=== PATIENT | male | born 1965 | race Caucasian/White ===

== ENCOUNTER 2016-09-27 17:55 | Emergency (ER) | payer MEDICARE, MEDICAID ==
[2016-09-27 19:36] VITALS: BP 143/89
[2016-09-27] MEDS ORDERED: Amoxicillin/Clavulanate TAB* 875 MG PO ONE (20:44)
--- NOTE | 2016-09-27 21:09 | UC ---
Ear Complaint HPI - HPI Summary HPI Summary: left jaw and ear throbbing ; had left lower molar filling 09/13/16 since 09/20 had right ear pain, now is worsening and mostly in right ear. - History of Current Complaint Chief Complaint: UCEar Stated Complaint: JAW PAIN, AND EAR ACHE Time Seen by Provider: 09/27/16 20:10 Hx Obtained From: Patient Onset/Duration: Sudden Onset, Lasting Weeks, Still Present, Worse Since - LAST TWO DAYS Severity Initially: Mild Severity Currently: Moderate Associated Signs/Symptoms: Positive: URI Symptoms - Allergies/Home Medications Allergies/Adverse Reactions: Allergies Allergy/AdvReac Type Severity Reaction Status Date / Time Ciprofloxacin [From Cipro] Allergy Intermediate Itching Verified 09/27/16 19:36 Morphine Allergy Intermediate Itching Verified 09/27/16 19:36 PMH/Surg Hx/FS Hx/Imm Hx Previously Healthy: Yes Endocrine History Of: Denies: Diabetes, Thyroid Disease Cardiovascular History Of: Reports: Hypertension - rx Denies: Cardiac Disorders Respiratory History Of: Denies: COPD, Asthma GI/ History Of: Denies: Ulcer - Surgical History Surgical History: Yes Surgery Procedure, Year, and Place: HYSTERECTOMY. KIDNEY STENT. BREAST REDUCTION. ACHILLES TENDER. HERNIA - Family History Known Family History: Negative: Respiratory Disease - Social History Occupation: Employed Part-time Lives: With Family Alcohol Use: None Substance Use Type: None, Prescribed Smoking Status (MU): Never Smoked Tobacco Have You Smoked in the Last Year: No - Immunization History Most Recent Influenza Vaccination: fall 2015 Review of Systems Constitutional: Negative Skin: Negative Eyes: Negative ENT: Ear Ache Respiratory: Negative Cardiovascular: Negative Gastrointestinal: Negative Genitourinary: Negative Motor: Negative Neurovascular: Negative Musculoskeletal: Negative Neurological: Negative Psychological: Negative All Other Systems Reviewed And Are Negative: Yes Physical Exam Triage Information Reviewed: Yes Appearance: Well-Appearing, No Pain Distress, Well-Nourished Vital Signs: Initial Vital Signs Temp 98.8 F 09/27/16 19:26 Pulse 96 09/27/16 19:26 Resp 18 09/27/16 19:26 BP 143/89 09/27/16 19:26 Pulse Ox 99 09/27/16 19:26 Vital Signs Reviewed: Yes ENT: Positive: Pharynx normal, Nasal congestion, TM bulging, TM dull, Other: - BILATERAL CERUMEN IMPACTION; LEFT EAR EAC EDEMA ERRETHEMA Dental Exam: Normal Neck exam: Normal Neck: Positive: Supple, Nontender, No Lymphadenopathy Respiratory Exam: Normal Respiratory: Positive: Chest non-tender, Lungs clear, Normal breath sounds, No respiratory distress, No accessory muscle use Cardiovascular Exam: Normal Cardiovascular: Positive: RRR, No Murmur Abdominal Exam: Normal Abdomen Description: Positive: Nontender, No Organomegaly Musculoskeletal Exam: Normal Musculoskeletal: Positive: Strength Intact Neurological Exam: Normal Psychological Exam: Normal Skin Exam: Normal Ear Complaint Course/Dx - Differential Dx/Diagnosis Differential Diagnosis/HQI/PQRI: Otitis Externa, Otitis Media, URI Provider Diagnoses: LEFT OTITIS EXTERNA. RIGHT OTITIS SEROUS. SINUSITIS. BILATERAL CERUMEN IMPACTION Discharge - Discharge Plan Condition: Stable Disposition: HOME Prescriptions: Amoxicillin/Clavulanate TAB* [Augmentin TAB 875*] 875 mg PO BID #20 tab Fluconazole 150 MG (NF) [Diflucan 150 mg (NF)] 150 mg PO ONCE #1 tab Neomyc/Polym/HC 1% OTIC SUSP* [Cortisporin Otic Susp 1%*] 4 drop BOTH EARS QID # 1 btl Patient Education Materials: Sinusitis (ED), Otitis Externa (ED), Cerumen Impaction (ED), Serous Otitis Media (ED) Referrals: Sushma Sim MD [Primary Care Provider] -
== END 2016-09-27 21:05 | disposition home or self-care (01) ==
LOC: EDSEX → UCEAST 17:55
DX: H60.92 Unspecified otitis externa, left ear (principal); H65.91 Unspecified nonsuppurative otitis media, right ear; H61.23 Impacted cerumen, bilateral; J32.9 Chronic sinusitis, unspecified; I10 Essential (primary) hypertension; Z88.1 Allergy status to other antibiotic agents; Z88.5 Allergy status to narcotic agent
CPT/HCPCS: 99213; A9270-GY; G0463

== ENCOUNTER 2018-09-03 14:07 | Emergency (ER) | payer MEDICARE, MEDICAID ==
[2018-09-03 14:57] VITALS: BP 141/91
--- NOTE | 2018-09-03 15:18 | UC ---
Complaint Female HPI - HPI Summary HPI Summary: reports dysuria and R flank pain which is improving since Sun. has not noted any blood in urine, n/v, fever,abd pain. Has a hx of renal stones although has not had one in many years. ibuprofen helps pain. Of note prefers he/him - History Of Current Complaint Chief Complaint: UCGU Stated Complaint: PAIN W/ URINATION Time Seen by Provider: 09/03/18 14:56 Hx Obtained From: Patient Hx Last Menstrual Period: 10 years ?: No Onset/Duration: Gradual Onset - 5 days ago Timing: Intermittent Pain Intensity: 5 Pain Scale Used: 0-10 Numeric Character: Sharp Aggravating Factor(s): Nothing Alleviating Factor(s): Meds - Allergies/Home Medications Allergies/Adverse Reactions: Allergies Allergy/AdvReac Type Severity Reaction Status Date / Time ciprofloxacin Allergy Severe Itching Verified 09/03/18 15:06 morphine Allergy Severe Itching Verified 09/03/18 15:06 Home Medications: Home Medications Cholecalciferol TAB* [Vitamin D TAB*] 400 unit PO DAILY 09/03/18 [History Confirmed 09/03/18] Cyanocobalamin TAB* [Vitamin B12 TAB*] 500 mcg PO DAILY 09/03/18 [History Confirmed 09/03/18] Magnesium [Magnesium Elemental] 30 mg PO DAILY 09/03/18 [History Confirmed 09/03] PMH/Surg Hx/FS Hx/Imm Hx Previously Healthy: Yes Endocrine History: Other - obesity - Surgical History Surgical History: Yes Surgery Procedure, Year, and Place: HYSTERECTOMY. KIDNEY STENT. BREAST REDUCTION. ACHILLES TENDER. HERNIA repair as baby - Family History Known Family History: Negative: Respiratory Disease - Social History Alcohol Use: None Substance Use Type: None Smoking Status (MU): Never Smoked Tobacco Have You Smoked in the Last Year: No - Immunization History Most Recent Influenza Vaccination: fall 2015 Review of Systems All Other Systems Reviewed And Are Negative: Yes Constitutional: Positive: Negative. Negative: Fever Skin: Negative: Rash Respiratory: Positive: Negative Cardiovascular: Positive: Negative Gastrointestinal: Negative: Abdominal Pain, Vomiting, Nausea Genitourinary: Positive: Dysuria, Frequency. Negative: Hematuria, Urgency, Vaginal/Penile Discharge Physical Exam Appearance: Well-Appearing Vital Signs: Initial Vital Signs Temp 98.3 F 09/03/18 14:48 Pulse 102 09/03/18 14:48 Resp 18 09/03/18 14:48 BP 141/91 09/03/18 14:48 Pulse Ox 97 09/03/18 14:48 Vital Signs Reviewed: Yes Respiratory Exam: Normal Cardiovascular Exam: Normal Abdomen Description: Positive: Nontender, Soft. Negative: CVA Tenderness (R), CVA Tenderness (L) Neurological: Positive: Alert Complaint Female Dx - Course Course Of Treatment: Dysuria and intermittent R flank pain w/ +hematuria on UA today. Will tx for presumed UTI but i explained we could not r/o stone and would have to go to ED for [facility]. Pt stated they will wait and if symptoms worsen in any way would go to ED. declines sti testing. AFebrile at this point. - Differential Dx/Diagnosis Differential Diagnosis/HQI/PQRI: Sexually Transmitted Disease, Ureteral Stone, Urinary Tract Infection Provider Diagnosis: Dysuria Discharge - Sign-Out/Discharge Documenting (check all that apply): Patient Departure All imaging exams completed and their final reports reviewed: No Studies - Discharge Plan Condition: Good Disposition: HOME Prescriptions: Fluconazole 150 MG TAB* [Diflucan 150 MG TAB*] 150 mg PO ONCE #1 tablet Nitrofurantoin Monohyd/M-Cryst [Macrobid 100 mg Capsule] 100 mg PO BID 7 Days # 14 cap Patient Education Materials: Dysuria (ED) Referrals: Sushma Sim MD [Primary Care Provider] - Additional Instructions: Please go to the ED if pain worsens to ensure this is not a kidney stone. - Billing Disposition and Condition Condition: GOOD Disposition: Home
== END 2018-09-03 15:35 | disposition home or self-care (01) ==
LOC: UCEAST 14:07
DX: R30.0 Dysuria (principal); Z88.0 Allergy status to penicillin; Z88.5 Allergy status to narcotic agent
CPT/HCPCS: 81003; 87086; 99212; G0463

== ENCOUNTER 2019-05-14 19:02 | Emergency (ER) | payer MEDICARE, MEDICAID ==
[2019-05-14 19:21] VITALS: BP 135/90
--- NOTE | 2019-05-14 20:05 | UC ---
Complaint Male HPI - History of Current Complaint Chief Complaint: UCGU Stated Complaint: UTI Time Seen by Provider: 05/14/19 19:56 Pain Intensity: 2 - Allergies/Home Medications Allergies/Adverse Reactions: Allergies Allergy/AdvReac Type Severity Reaction Status Date / Time ciprofloxacin Allergy Severe Hives Verified 05/14/19 19:21 morphine Allergy Severe Hives Verified 05/14/19 19:21 PMH/Surg Hx/FS Hx/Imm Hx - Surgical History Surgical History: Yes Surgery Procedure, Year, and Place: HYSTERECTOMY. KIDNEY STENT. BREAST REDUCTION. ACHILLES TENDER. HERNIA repair as baby - Family History Known Family History: Negative: Respiratory Disease - Social History Alcohol Use: None Substance Use Type: None Smoking Status (MU): Never Smoked Tobacco Have You Smoked in the Last Year: No - Immunization History Most Recent Influenza Vaccination: fall 2015 Physical Exam Vital Signs: Initial Vital Signs Temp 98.1 F 05/14/19 19:15 Pulse 107 05/14/19 19:15 Resp 16 05/14/19 19:15 BP 135/90 05/14/19 19:15 Pulse Ox 96 05/14/19 19:15 Discharge ED - Discharge Plan Referrals: Sushma Sim MD [Primary Care Provider] -
--- NOTE | 2019-05-14 20:10 | ED ---
Abdominal Pain/Female - HPI Summary HPI Summary: Mr. Childress presents complaining of dysuria and frequency. He states that this is the exact symptoms that he has with his UTIs. He gets about 4 year. 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 He has a history of kidney stones. Denies any flank pain and states this feels more like a urinary tract infection. He denies any fever or chills. - History of Current Complaint Chief Complaint: UCGU Stated Complaint: UTI Time Seen by Provider: 05/14/19 19:56 Hx Obtained From: Patient ?: No Onset/Duration: Gradual Onset Timing: Constant Severity Initially: Mild Severity Currently: Mild Pain Intensity: 2 Location: Suprapubic Radiates: No Character: Burning Aggravating Factor(s): Nothing Alleviating Factor(s): Nothing Associated Signs and Symptoms: Positive: Negative Simlar Episode/Dx as:: UTI Allergies/Adverse Reactions: Allergies Allergy/AdvReac Type Severity Reaction Status Date / Time ciprofloxacin Allergy Severe Hives Verified 05/14/19 19:21 morphine Allergy Severe Hives Verified 05/14/19 19:21 PMH/Surg Hx/FS Hx/Imm Hx Previously Healthy: Yes Endocrine/Hematology History: Denies: Hx Diabetes, Hx Thyroid Disease Cardiovascular History: Reports: Hx Hypertension - rx Respiratory History: Denies: Hx Asthma, Hx Chronic Obstructive Pulmonary Disease (COPD) GI History: Denies: Hx Ulcer - Surgical History Surgery Procedure, Year, and Place: HYSTERECTOMY. KIDNEY STENT. BREAST REDUCTION. ACHILLES TENDER. HERNIA repair as baby Infectious Disease History: No Infectious Disease History: Denies: Hx Clostridium Difficile, Hx Hepatitis, Hx Human Immunodeficiency Virus (HIV), Hx of Known/Suspected MRSA, Hx Shingles, Hx Tuberculosis, Hx Known/ Suspected VRE, Hx Known/Suspected VRSA, History Other Infectious Disease, Traveled Outside the [place] in Last 30 Days - Family History Known Family History: Negative: Respiratory Disease - Social History Alcohol Use: None Substance Use Type: Reports: None Smoking Status (MU): Never Smoked Tobacco Have You Smoked in the Last Year: No Review of Systems Constitutional: Negative Positive: burning, dysuria, frequency, urgency All Other Systems Reviewed And Are Negative: Yes Physical Exam - Summary Physical Exam Summary: He is nontoxic in appearance with stable vital signs. Triage Information Reviewed: Yes Vital Signs On Initial Exam: Initial Vitals Temp Pulse Resp BP Pulse Ox 98.1 F 107 16 135/90 96 05/14/19 19:15 05/14/19 19:15 05/14/19 19:15 05/14/19 19:15 05/14/19 19:15 Vital Signs Reviewed: Yes Appearance: Positive: Well-Appearing, No Pain Distress Skin: Positive: Warm, Skin Color Reflects Adequate Perfusion, Dry ENT: Positive: Normal ENT inspection Cardiovascular: Positive: Tachycardia Abdomen Description: Positive: Nontender Diagnostics - Vital Signs Vital Signs Temp Pulse Resp BP Pulse Ox 05/14/19 19:15 98.1 F 107 16 135/90 96 - Laboratory Lab Results: Lab Results 05/14/19 Range/Units 19:48 POC Urine Color Dark yellow POC Urine Clarity Slightly cloudy POC Urine pH 5.5 (5-9) POC Ur Specif [place] 1.025 (1.010-1.030) POC Urine Protein 1+ A (Negative) POC Ur Glucose (UA) Negative (Negative) POC Urine Ketones Negative (Negative) POC Urine Blood Negative (Negative) POC Urine Nitrite Negative (Negative) POC Urine Bilirubin Negative (Negative) POC Urine Urobilinogen 0.2 (Negative) POC U Leukocyte Esteras Negative (Negative) Lab Statement: Any lab studies that have been ordered have been reviewed, and results considered in the medical decision making process. Abdominal Pain Fem Course/Dx - Course Course Of Treatment: We discussed his negative urine result. He states that this oftentimes happens and he is frequently been discharged home only to get a call later that his cultures were positive. I offered to treat him while awaiting culture results. He is nontoxic and he was in agreement with this plan. - Diagnoses Provider Diagnoses: Dysuria Discharge ED - Sign-Out/Discharge Documenting (check all that apply): Patient Departure All imaging exams completed and their final reports reviewed: No Studies - Discharge Plan Condition: Stable Disposition: HOME Patient Education Materials: Dysuria (ED) Referrals: Sushma Sim MD [Primary Care Provider] - - Billing Disposition and Condition Condition: STABLE Disposition: Home
== END 2019-05-14 20:38 | disposition home or self-care (01) ==
LOC: UCEAST 19:02
DX: R30.0 Dysuria (principal); R35.0 Frequency of micturition; I10 Essential (primary) hypertension; Z88.1 Allergy status to other antibiotic agents; Z88.5 Allergy status to narcotic agent
CPT/HCPCS: 81003; 99212; G0463

== ENCOUNTER 2019-08-14 14:25 | Emergency (ER) | payer MEDICARE, MEDICAID ==
[2019-08-14 15:12] VITALS: BP 138/96
[2019-08-14 15:26] LABS: Influenza B Molecular POSITIVE (Negative)
--- NOTE | 2019-08-14 15:33 | UC ---
Respiratory Complaint HPI - HPI Summary HPI Summary: C/O cough and congestion x 5 days. Now with some ear pain on the right ear. Very sore throat with hoarseness. No sinus pain. Body aches and chills. - History of Current Complaint Chief Complaint: UCGeneralIllness Stated Complaint: FLU LIKE SYMPTOMS Hx Obtained From: Patient Onset/Duration: Sudden Onset, Lasting Days - 5, Worse Since - last 2 days Severity Initially: Mild Severity Currently: Moderate Pain Intensity: 6 Character: Cough: Nonproductive Aggravating Factors: Deep Breaths, Recumbent Position Alleviating Factors: Nothing Associated Signs And Symptoms: Positive: Fever, Chills, URI - sore throat and ear ache, Nasal Congestion - Allergies/Home Medications Allergies/Adverse Reactions: Allergies Allergy/AdvReac Type Severity Reaction Status Date / Time ciprofloxacin Allergy Severe Hives Verified 08/14/19 15:12 morphine Allergy Severe Hives Verified 08/14/19 15:12 PMH/Surg Hx/FS Hx/Imm Hx Cardiovascular History: Hypertension - Surgical History Surgical History: Yes Surgery Procedure, Year, and Place: HYSTERECTOMY. KIDNEY STENT. BREAST REDUCTION. ACHILLES TENDER. HERNIA repair as baby - Family History Known Family History: Positive: Cardiac Disease, Diabetes Negative: Respiratory Disease - Social History Occupation: Employed Full-time Lives: Alone Alcohol Use: None Substance Use Type: None Smoking Status (MU): Never Smoked Tobacco Have You Smoked in the Last Year: No - Immunization History Most Recent Influenza Vaccination: fall 2015 Review of Systems All Other Systems Reviewed And Are Negative: Yes Constitutional: Positive: Chills, Fatigue ENT: Positive: Sore Throat, Ear Ache, Nasal Discharge Respiratory: Positive: Cough Musculoskeletal: Positive: Myalgia Physical Exam Triage Information Reviewed: Yes Appearance: Ill-Appearing, Pain Distress - with swollowing., Obese Vital Signs: Initial Vital Signs Temp 96.3 F 08/14/19 15:07 Pulse 107 08/14/19 15:07 Resp 22 08/14/19 15:07 BP 138/96 08/14/19 15:07 Pulse Ox 96 08/14/19 15:07 Vital Signs Reviewed: Yes Eyes: Positive: Conjunctiva Clear ENT: Positive: Pharynx normal, Nasal congestion, TMs normal - left. Right completely obscurred by wax., Hoarse voice Neck exam: Normal Respiratory: Positive: Wheezing - expiratory wheeze with coughing. Cardiovascular Exam: Normal Musculoskeletal Exam: Normal Neurological Exam: Normal Psychological Exam: Normal Skin Exam: Normal Diagnostics - Laboratory Lab Results: Positive Flu B Negative Strep Re-Evaluation - Re-Evaluation First Eval Re-Evaluation Time: 15:46 Change: Improved - Cerumen removed from right ear. TM is normal Respiratory Course/Dx - Differential Dx/Diagnosis Differential Diagnosis/HQI/PQRI: Asthma, Influenza, Lower Resp Infection, Sinusitis Provider Diagnosis: Influenza B, Acute bronchospasm due to viral infection, Impacted cerumen, right ear Discharge ED - Sign-Out/Discharge Documenting (check all that apply): Patient Departure All imaging exams completed and their final reports reviewed: No Studies - Discharge Plan Condition: Stable Disposition: HOME Prescriptions: predniSONE 20 mg TAB [Deltasone 20 MG TAB*] 60 mg PO DAILY #18 tab Patient Education Materials: Influenza (ED), Bronchospasm (ED), Cerumen Impaction (ED) Referrals: Sushma Sim MD [Primary Care Provider] - Additional Instructions: NASAL SPRAYS AND DROPS: Afrin in the PUMP/ MIST bottle (Get generic 12 hours nasal decongestant spray). Tilt your head down and look at the floor while doing the spray, "nose to toes". Decongestant nasal sprays and drops often give dramatic relief from congestion. They are often recommended for patients with sinus infection to assist with sinus drainage. Persons with high blood pressure should consult the doctor before using these nasal sprays. Afrin and Neptali-Synephrine are common [id number] preparations. They should not be used for more than five days, as "rebound" congestion can occur - - the congestion flares as the drug wears off. A way of dealing with this rebound congestion problem is to medicate only one nostril each time, allowing the other nostril to recover from the medicine' s effects. When you no longer need the drug during the day, spray only one nostril each night. This helps you sleep well without severe rebound congestion. Call the doctor if you develop severe headache, palpitations, or chest pain. - Billing Disposition and Condition Condition: STABLE Disposition: Home
== END 2019-08-14 15:58 | disposition home or self-care (01) ==
LOC: UCEAST 14:25
DX: J10.1 Influenza due to other identified influenza virus with other respiratory manifestations (principal); J98.01 Acute bronchospasm; B97.89 Other viral agents as the cause of diseases classified elsewhere; H61.21 Impacted cerumen, right ear; I10 Essential (primary) hypertension; Z88.1 Allergy status to other antibiotic agents; Z88.5 Allergy status to narcotic agent
CPT/HCPCS: 87651; 99213; G0463

== ENCOUNTER 2019-08-20 19:18 | Emergency (ER) | payer MEDICARE, MEDICAID ==
[2019-08-20] MEDS ORDERED: Albuterol HFA INHALER* 8 gm MDI INH ONE (20:08)
--- NOTE | 2019-08-20 20:28 | UC ---
Respiratory Complaint HPI - HPI Summary HPI Summary: PATIENT SWABBED POSITIVE FOR INFLUENZA B 6 DAYS AGO. WAS OUTSIDE THE WINDOW FOR TAMIFLU SO TREATED SUPPORTIVELY. STATES HIS FLU SYMPTOMS HAVE IMPROVED BUT HIS RIGHT EAR PAIN HAS PERSISTED AND HE HAS DEVELOPED A PRODUCTIVE COUGH AND SHORTNESS OF BREATH. NO CHEST PAIN. DENIES ANY PAIN WITH INSPIRATION. NO WHEEZE. NO FEVER. - History of Current Complaint Chief Complaint: UCRespiratory Stated Complaint: SORE THROAT, EARACHE Time Seen by Provider: 08/20/19 19:34 Hx Obtained From: Patient Onset/Duration: Gradual Onset, Lasting Days, Still Present Timing: Constant Severity Initially: Moderate Severity Currently: Moderate Pain Intensity: 4 Pain Scale Used: 0-10 Numeric Character: Cough: Productive Aggravating Factors: Nothing Alleviating Factors: Nothing Associated Signs And Symptoms: Positive: Dyspnea, Nasal Congestion. Negative: Fever, Pleuritic Chest Pain, Wheezing - Allergies/Home Medications Allergies/Adverse Reactions: Allergies Allergy/AdvReac Type Severity Reaction Status Date / Time ciprofloxacin Allergy Severe Hives Verified 08/20/19 19:31 morphine Allergy Severe Hives Verified 08/20/19 19:31 PMH/Surg Hx/FS Hx/Imm Hx Endocrine History: Diabetes - PREDIABETES Cardiovascular History: Hypertension - Surgical History Surgical History: Yes Surgery Procedure, Year, and Place: HYSTERECTOMY. KIDNEY STENT. BREAST REDUCTION. ACHILLES TENDER. HERNIA repair as baby - Family History Known Family History: Positive: Cardiac Disease, Diabetes Negative: Respiratory Disease - Social History Alcohol Use: None Substance Use Type: None Smoking Status (MU): Never Smoked Tobacco Have You Smoked in the Last Year: No - Immunization History Most Recent Influenza Vaccination: fall 2015 Review of Systems All Other Systems Reviewed And Are Negative: Yes Constitutional: Positive: Negative ENT: Positive: Ear Ache, Nasal Discharge Respiratory: Positive: Shortness Of Breath, Cough Cardiovascular: Positive: Negative Gastrointestinal: Positive: Negative Physical Exam Triage Information Reviewed: Yes Appearance: Well-Appearing, No Pain Distress, Well-Nourished Vital Signs: Initial Vital Signs Temp 98.6 F 08/20/19 19:27 Pulse 115 08/20/19 19:27 Resp 16 08/20/19 19:27 BP 155/91 08/20/19 19:27 Pulse Ox 98 08/20/19 19:27 Vital Signs Reviewed: Yes Eyes: Positive: Conjunctiva Clear ENT: Positive: Hearing grossly normal, Pharynx normal, TMs normal Neck: Positive: Supple, Nontender, No Lymphadenopathy Respiratory: Positive: No respiratory distress, No accessory muscle use, Other: - PT SEEMS ANXIOUS AND BREATHING DEEPLY/HEAVILY BUT SPEAKING IN FULL SENTENCES. Negative: Wheezing Cardiovascular: Positive: Tachycardia Abdomen Description: Positive: Soft Musculoskeletal: Positive: No Edema Neurological: Positive: Alert Psychological: Positive: Age Appropriate Behavior, Other: - SEEMS ANXIOUS Skin: Negative: Rashes Diagnostics - Radiology CXR Radiology Interpretation Completed By: ED Physician Summary of Radiographic Findings: NO ACUTE PROCESS Respiratory Course/Dx - Course Course Of Treatment: PATIENT SWABBED POSITIVE FOR INFLUENZA B 6 DAYS AGO ON 08/14/2019. HE HAD ALREADY HAD SYMPTOMS FOR ABOUT 5 DAYS AT THAT TIME. HE STATES THAT SINCE THEN HE HAS DEVELOPED A PRODUCTIVE COUGH AND HAS BECOME INCREASINGLY SHORT OF BREATH. HE ARRIVES TO THE URGENT CARE TACHYCARDIC IN THE 110S INCREASING TO THE 130S WITH AMBULATION. OXYGEN SATURATION DROPS TO THE LOW 90S WITH AMBULATION. PATIENT IS BREATHING DEEPLY AND HEAVILY ALTHOUGH HE IS STILL ABLE TO SPEAK IN FULL SENTENCES. CHEST X-RAY OBTAINED AND UNREMARKABLE ON MY INITIAL INTERPRETATION. RADIOLOGY READ IS PENDING. 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 GIVEN HIS AGE, TACHYCARDIA , OXYGEN LEVEL AND HORMONE USE I AM CONCERNED FOR PE OR SOME OTHER UNDERLYING CONDITION. HE REQUIRES A HIGHER LEVEL OF SERVICE THAN WHAT IS AVAILABLE IN THE URGENT CARE. TO [facility] BY AMBULANCE. - Differential Dx/Diagnosis Provider Diagnosis: Dyspnea - Physician Notification/Consults Discussed Patient Care With: Brittany Chisholm - TO [facility] BY AMBULANCE Time Discussed With Above Provider: 20:55 Instructed by Provider To: MD Will See In ED Discharge ED - Sign-Out/Discharge Documenting (check all that apply): Patient Departure All imaging exams completed and their final reports reviewed: No - Discharge Plan Condition: Fair Disposition: TRANS HIGHER LVL OF CARE FAC Referrals: Sushma Sim MD [Primary Care Provider] - - Billing Disposition and Condition Condition: FAIR Disposition: Trans Higher Lvl of Care Fac
[2019-08-20 21:10] VITALS: BP 130/84
--- NOTE | 2019-08-21 12:20 | UC ---
- Progress Note Progress Note: Reviewed Dr. Stone's report of chest xray: no active disease. Wet read correct. Course/Dx - Diagnoses Provider Diagnoses: Dyspnea - Provider Notifications Time Discussed With Above Provider: 20:55 Instructed by Provider To: MD Will See In ED Discharge ED - Sign-Out/Discharge Documenting (check all that apply): Post-Discharge Follow Up All imaging exams completed and their final reports reviewed: Yes - Discharge Plan Condition: Fair Disposition: TRANS HIGHER LVL OF CARE FAC Referrals: Sushma Sim MD [Primary Care Provider] - - Billing Disposition and Condition Condition: FAIR Disposition: Trans Higher Lvl of Care Fac
== END 2019-08-20 21:13 | disposition short-term general hospital (02) ==
LOC: UCEAST 19:18
DX: J40 Bronchitis, not specified as acute or chronic (principal); R06.00 Dyspnea, unspecified; I10 Essential (primary) hypertension; R06.02 Shortness of breath; R09.89 Other specified symptoms and signs involving the circulatory and respiratory systems; Z88.1 Allergy status to other antibiotic agents; Z88.5 Allergy status to narcotic agent; R73.03 Prediabetes; R05 Cough; R50.9 Fever, unspecified
CPT/HCPCS: 71046; 99213; A9270-GY; G0463

== ENCOUNTER 2019-08-20 21:32 | Emergency (ER) | payer MEDICARE, MEDICAID ==
[2019-08-20 22:24] LABS: Hematocrit 47 % (42-52); Hemoglobin 15.3 g/dL (14.0-18.0); Mean Corpuscular HGB Conc 33 g/dL (31-36); Mean Corpuscular Hemoglobin 28 pg (27-31); Mean Corpuscular Volume 85 fL (80-94); Platelet Count 256 10^3/uL (150-450); Red Blood Count 5.52 10^6 /uL (4.18-5.48); Red Cell Distribution Width 15 % (10-15); White Blood Count 10.2 10^3/uL (3.5-10.8)
[2019-08-20 22:41] LABS: ABS Basophils 0.1 10^3/ul (0-0.2); ABS Eosinophils 0.1 10^3/ul (0-0.6); ABS Lymphocytes 1.5 10^3/ul (1.0-4.8); ABS Monocytes 0.9 10^3/ul (0-0.8); ABS Neutrophils 7.5 10^3/ul (1.5-7.7); Eosinophil % 1.2 %; Lymphocyte % 15.1 %; Nucleated Red Blood Cells % 0.2
[2019-08-20 22:44] LABS: Albumin 4.2 g/dL (3.2-5.2); Albumin/Globulin Ratio 1.4 (1-3); BUN/Creatinine Ratio 31.4 (8-20); C Reactive Protein 5.17 mg/L (<8.01); EGFR African American 89.1 (>60); EGFR Non-African American 73.6 (>60); Globulin 2.9 g/dL (2-4); Potassium 4.4 mmol/L (3.5-5.0); Total Bilirubin 0.3 mg/dL (0.2-1.0); Total Protein 7.1 g/dL (6.4-8.9)
[2019-08-20] MEDS ORDERED: Iohexol 350* (CONTRAST) 500 ML MDV IV ONE (22:55)
[2019-08-20] MEDS ORDERED: Albuterol/Ipratropium NEB.SOL* Albuterol 2.5 MG/Ipratropium 0.5 MG 3 ML INH ONE (23:15)
[2019-08-21] MEDS ORDERED: NS 0.9% 1000 ML** 1,000 ML IV ONE (00:26)
[2019-08-21] MEDS ORDERED: Acetaminophen TAB* 325 MG PO ONE (00:27)
[2019-08-21] MEDS ORDERED: Azithromycin TAB* 250 MG PO ONE (00:51)
--- NOTE | 2019-08-21 00:52 | ED ---
Respiratory - HPI Summary HPI Summary: 54 year old male presents with shortness of breath for the past week. He was diagnosed with flu a couple days ago. He admits to wheezing. He admits occasional fevers and chills. He states he's had a productive cough. Denies any recent travel. He is not a smoker. He is on testosterone. He denies any pain or swelling in his calf muscles. No family history of blood clots. No recent surgeries. He denies any chest pain currently. - History of Current Complaint Chief Complaint: EDShortnessOfBreath Stated Complaint: SOB PER EMS Time Seen by Provider: 08/20/19 21:48 Pain Intensity: 2 Sputum Amount: None Sputum Color: Yellow, Brown - Allergy/Home Medications Allergies/Adverse Reactions: Allergies Allergy/AdvReac Type Severity Reaction Status Date / Time ciprofloxacin Allergy Severe Hives Verified 08/20/19 19:31 morphine Allergy Severe Hives Verified 08/20/19 19:31 PMH/Surg Hx/FS Hx/Imm Hx Endocrine/Hematology History: Denies: Hx Anticoagulant Therapy, Hx Thyroid Disease Comment Only: Hx Diabetes - pre-diabetic Cardiovascular History: Reports: Hx Hypertension Respiratory History: Denies: Hx Asthma, Hx Chronic Obstructive Pulmonary Disease (COPD) GI History: Denies: Hx Ulcer - Surgical History Surgery Procedure, Year, and Place: HYSTERECTOMY. KIDNEY STENT. BREAST REDUCTION. ACHILLES TENDER. HERNIA repair as baby - Immunization History Date of Influenza Vaccine: 05/2019 Infectious Disease History: Yes Infectious Disease History: Denies: Hx Clostridium Difficile, Hx Hepatitis, Hx Human Immunodeficiency Virus (HIV), Hx of Known/Suspected MRSA, Hx Shingles, Hx Tuberculosis, Hx Known/ Suspected VRE, Hx Known/Suspected VRSA, History Other Infectious Disease, Traveled Outside the [place] in Last 30 Days - Family History Known Family History: Positive: Cardiac Disease, Diabetes Negative: Respiratory Disease, Blood Disorder - Social History Alcohol Use: None Substance Use Type: Reports: None Smoking Status (MU): Never Smoked Tobacco Have You Smoked in the Last Year: No Review of Systems Positive: Fever Negative: Chest Pain Positive: Shortness Of Breath, Cough Negative: Abdominal Pain All Other Systems Reviewed And Are Negative: Yes Physical Exam Triage Information Reviewed: Yes Vital Signs On Initial Exam: Initial Vitals Pulse Pulse Ox 109 97 08/20/19 21:41 08/20/19 21:41 Vital Signs Reviewed: Yes Appearance: Positive: Well-Appearing Skin: Positive: Warm, Dry Head/Face: Positive: Normal Head/Face Inspection Eyes: Positive: Normal, EOMI, ASHER, Conjunctiva Clear ENT: Positive: Normal ENT inspection, Pharynx normal, TMs normal Respiratory/Lung Sounds: Positive: Breath Sounds Present, Wheezes Cardiovascular: Positive: Normal, RRR Abdomen Description: Positive: Nontender, Soft Bowel Sounds: Positive: Present Musculoskeletal: Positive: Normal Neurological: Positive: Normal Psychiatric: Positive: Normal Procedures - Sedation Patient Received Moderate/Deep Sedation with Procedure: No Diagnostics - Vital Signs Vital Signs Temp Pulse Resp BP Pulse Ox 08/21/19 00:47 115 94 08/20/19 23:59 104 98 08/20/19 23:58 104 16 98 08/20/19 22:43 128/89 08/20/19 22:00 110 96 08/20/19 21:44 98.3 F 112 24 151/106 96 08/20/19 21:43 109 151/106 95 08/20/19 21:41 109 97 - Laboratory Lab Results: Lab Results 08/20/19 08/20/19 08/20/19 Range/Units 22:15 22:15 22:15 WBC 10.2 (3.5-10.8) 10^3/uL RBC 5.52 H (4.18-5.48) 10^6 /uL Hgb 15.3 (14.0-18.0) g/dL Hct 47 (42-52) % MCV 85 (80-94) fL MCH 28 (27-31) pg MCHC 33 (31-36) g/dL RDW 15 (10-15) % Plt Count 256 (150-450) 10^3/uL MPV 8.0 (7.4-10.4) fL Neut % (Auto) 74.2 % Lymph % (Auto) 15.1 % [place] % (Auto) 8.9 % Eos % (Auto) 1.2 % Baso % (Auto) 0.6 % Absolute Neuts (auto) 7.5 (1.5-7.7) 10^3/ul Absolute Lymphs (auto) 1.5 (1.0-4.8) 10^3/ul Absolute Monos (auto) 0.9 H (0-0.8) 10^3/ul Absolute Eos (auto) 0.1 (0-0.6) 10^3/ul Absolute Basos (auto) 0.1 (0-0.2) 10^3/ul Absolute Nucleated RBC 0.0 10^3/ul Nucleated RBC % 0.2 D-Dimer, Quantitative (Less Than 230) ng/mL Sodium 137 (135-145) mmol/L Potassium 4.4 (3.5-5.0) mmol/L Chloride 102 (101-111) mmol/L Carbon Dioxide 30 (22-32) mmol/L Anion Gap 5 (2-11) mmol/L BUN 33 H (6-24) mg/dL Creatinine 1.05 (0.67-1.17) mg/dL Est GFR ( Amer) 89.1 (>60) Est GFR (Non-Af Amer) 73.6 (>60) BUN/Creatinine Ratio 31.4 H (8-20) Glucose 124 H (70-100) mg/dL Lactic Acid 1.5 (0.5-2.0) mmol/L Calcium 11.0 H (8.6-10.3) mg/dL Total Bilirubin 0.30 (0.2-1.0) mg/dL AST 13 (13-39) U/L ALT 29 (7-52) U/L Alkaline Phosphatase 91 (34-104) U/L Troponin I 0.00 (<0.03) ng/mL C-Reactive Protein 5.17 (<8.01) mg/L B-Natriuretic Peptide (<=100) pg/mL Total Protein 7.1 (6.4-8.9) g/dL Albumin 4.2 (3.2-5.2) g/dL Globulin 2.9 (2-4) g/dL Albumin/Globulin Ratio 1.4 (1-3) 08/20/19 08/20/19 Range/Units 22:15 22:15 WBC (3.5-10.8) 10^3/uL RBC (4.18-5.48) 10^6 /uL Hgb (14.0-18.0) g/dL Hct (42-52) % MCV (80-94) fL MCH (27-31) pg MCHC (31-36) g/dL RDW (10-15) % Plt Count (150-450) 10^3/uL MPV (7.4-10.4) fL Neut % (Auto) % Lymph % (Auto) % [place] % (Auto) % Eos % (Auto) % Baso % (Auto) % Absolute Neuts (auto) (1.5-7.7) 10^3/ul Absolute Lymphs (auto) (1.0-4.8) 10^3/ul Absolute Monos (auto) (0-0.8) 10^3/ul Absolute Eos (auto) (0-0.6) 10^3/ul Absolute Basos (auto) (0-0.2) 10^3/ul Absolute Nucleated RBC 10^3/ul Nucleated RBC % D-Dimer, Quantitative < 200 (Less Than 230) ng/mL Sodium (135-145) mmol/L Potassium (3.5-5.0) mmol/L Chloride (101-111) mmol/L Carbon Dioxide (22-32) mmol/L Anion Gap (2-11) mmol/L BUN (6-24) mg/dL Creatinine (0.67-1.17) mg/dL Est GFR ( Amer) (>60) Est GFR (Non-Af Amer) (>60) BUN/Creatinine Ratio (8-20) Glucose (70-100) mg/dL Lactic Acid (0.5-2.0) mmol/L Calcium (8.6-10.3) mg/dL Total Bilirubin (0.2-1.0) mg/dL AST (13-39) U/L ALT (7-52) U/L Alkaline Phosphatase (34-104) U/L Troponin I (<0.03) ng/mL C-Reactive Protein (<8.01) mg/L B-Natriuretic Peptide 12 (<=100) pg/mL Total Protein (6.4-8.9) g/dL Albumin (3.2-5.2) g/dL Globulin (2-4) g/dL Albumin/Globulin Ratio (1-3) Result Diagrams: 08/20/19 22:15 08/20/19 22:15 Lab Statement: Any lab studies that have been ordered have been reviewed, and results considered in the medical decision making process. - CT cta CT Interpretation Completed By: Radiologist Summary of CT Findings: 1. There is minimal bibasilar and bilateral dependent atelectatic change. The lungs and pleural spaces are otherwise clear. 2. There is minimal IV contrast opacification of the pulmonary arteries and therefore nondiagnostic evaluation for acute pulmonary embolism. - EKG No standard instances Cardiac Rate: Tachycardia EKG Rhythm: Sinus Tachycardia Summary of EKG Findings: sinus tachycardia Re-Evaluation - Re-Evaluation First Eval Re-Evaluation Time: 00:30 Change: Improved Comment: lungs CTA Second Eval Comment: discussed CTA was not a good study and has had done twice, patient only risk factor is that he is on testosterone so got a d-dimer which is negative. Disposition - Course Course Of Treatment: 54 year old male presents with shortness of breath for the past week. He was diagnosed with flu a couple days ago. He admits to wheezing. He admits occasional fevers and chills. He states he's had a productive cough. Denies any recent travel. He is not a smoker. He is on testosterone. He denies any pain or swelling in his calf muscles. No family history of blood clots. No recent surgeries. He denies any chest pain currently. On exam some wheezing noted. gave breathing treatment with improvement. Is tachycardic here. Attempted to do a CTA which was done twice but the contrast was not timed right. CTA was not a good study. Discussed will get his d-dimer as is low risk for PE. D-dimer is negative so did not repeat CTA. We'll treat with azithromycin with worsening shortness of breath and is tachycardic here. We'll give inhaler. Told to follow up primary. Patient understands and agrees with plan. - Differential Dx - Cardiopulmonary Differential Diagnoses - Cardiopulmonary: Bronchitis, Influenza, Lower Resp Infection - Diagnoses Provider Diagnoses: Bronchitis Discharge ED - Sign-Out/Discharge Documenting (check all that apply): Patient Departure - Discharge Plan Condition: Good Disposition: HOME Prescriptions: Albuterol HFA INHALER* [Ventolin HFA Inhaler*] 1 puff INH Q4H PRN #1 mdi PRN Reason: Wheezing Azithromycin TAB* [Zithromax TAB (Z-SADIE) 250 mg #6 tabs] 250 mg PO DAILY #4 tab Patient Education Materials: Acute Bronchitis (ED) Referrals: Sushma Sim MD [Primary Care Provider] - Additional Instructions: Use inhaler up to two puffs every 4 hours for cough and wheezing Take antibiotic once daily starting tomorrow for 4 days Take Tylenol or ibuprofen for pain every 6 hours Follow up with primary within 5 days Return to ED if develop severe shortness of breath, worsening chest pain, or any new or worsening symptoms - Billing Disposition and Condition Condition: GOOD Disposition: Home
[2019-08-21] MEDS ORDERED: A lbuterol Hfa (PREPAK) 1 MDI - ED TAKE HOME DISPENSING ONLY INHH ONE (00:53)
[2019-08-21 01:11] VITALS: BP 145/87
== END 2019-08-21 01:10 | disposition home or self-care (01) ==
LOC: ED 21:32
DX: J40 Bronchitis, not specified as acute or chronic (principal); R06.02 Shortness of breath; R05 Cough; R50.9 Fever, unspecified; I10 Essential (primary) hypertension; Z88.1 Allergy status to other antibiotic agents; Z88.6 Allergy status to analgesic agent
CPT/HCPCS: 36415; 71275; 80053; 83605; 83880; 84484; 85025; 85379; 86140; 87040; 93005; 96360; 99283; A9270-GY